=== PATIENT | male | born 1965 | race African-American/Black ===

== ENCOUNTER 2019-11-26 18:27 | Emergency (ER) | payer SELFPAY ==
[~2019-11-26] VITALS: Ht 180.3 cm; Wt 84.1 kg
[2019-11-26 21:00] VITALS: BP 127/78
== END 2019-11-26 21:30 | disposition home or self-care (01) ==
LOC: EMS 18:30
DX: S63.611A Unspecified sprain of left index finger, initial encounter (principal); F17.210 Nicotine dependence, cigarettes, uncomplicated; F12.90 Cannabis use, unspecified, uncomplicated; Y04.0XXA Assault by unarmed brawl or fight, initial encounter; Y93.89 Activity, other specified; Y92.89 Other specified places as the place of occurrence of the external cause; Y99.8 Other external cause status
CPT/HCPCS: 99406

== ENCOUNTER 2022-12-22 15:51 | Emergency (ER) | payer OTHER ==
[~2022-12-22] VITALS: Ht 180.3 cm; Wt 86.4 kg
[2022-12-22 19:09] VITALS: BP 134/90; PULSE 92; RESP 18; TEMP 97.9
[2022-12-22] MEDS ORDERED: CEPH-558 PO (20:24)
[2022-12-22] MEDS ORDERED: IBUP-1492 PO (20:25)
[2022-12-22] MEDS ORDERED: NEOMYCIN/BACITRACIN/POLYMYXIN B OINTMENT PACKET TP ONE (20:30)
== END 2022-12-22 20:40 | disposition home or self-care (01) ==
LOC: EMS 15:53
DX: S61.211A Laceration without foreign body of left index finger without damage to nail, initial encounter (principal); F17.210 Nicotine dependence, cigarettes, uncomplicated; F12.90 Cannabis use, unspecified, uncomplicated; X58.XXXA Exposure to other specified factors, initial encounter; Y93.89 Activity, other specified; Y92.89 Other specified places as the place of occurrence of the external cause; Y99.8 Other external cause status
CPT/HCPCS: 99283